=== PATIENT | female | born 1975 | race Caucasian/White ===

== ENCOUNTER 2020-04-08 18:57 | Emergency (ER) | payer BC ==
[~2020-04-08] VITALS: Ht 162.6 cm; Wt 98.0 kg
[2020-04-08 19:04] VITALS: BP 204/124
--- NOTE | 2020-04-08 19:16 | NUR ---
44 Y/O FEMALE PRESENTED TO ED C/O VOMITING X 1 DAY . PT STATES SHE ATE A BREAKFAST BURRIOT THIS MORNING AT 530 AND A FEW HOURS LATER SHE STARTED VOMITING. PT STATES SHE HAS VOMITTED 4 TIMES TODAY. PT C/O SALAZAR , 8/10 THROBBING PAIN. PT STATES SHE WAS FEELING SLEEPY THE LAST COUPLE OF DAYS AND SHE HAS BEEN FEELING CONSTANTLY THIRSTY. PT STATES SHE HAS BEEN DRINKING AT LEAST X8 32 BOTTLES OF WATER A DAY. PT DENIES DIARRHEA , BODY ACHES, CHILLS AND FEVER. PT STATES SHE WORKS AT [employer] AND HAVE BEEN AROUND PEOPLE WHO HAVE BEEN SICK BUT WAS TESTED FOR COVID ON 04/11 AND RESULTS WERE - ON 04/15. PT HAS HX OF HTN BUT DOES NOT TAKE MEDICATIONS. PT SITTING IN BED ,LOCKED AND IN LOWEST POSITION, HOB ELEVATED , SIDE RAIL X1. RR EVEN AND UNLABORED ,A/O X4. HX: HTN,HYPOTHYROID NKA RX: LEVOTHYROXIN
--- NOTE | 2020-04-08 19:43 | NUR ---
ERMD AT BEDSIDE FOR EVALUATION.
[2020-04-08] MEDS ORDERED: IBUPROFEN 600 MG TAB PO ONE (19:45)
[2020-04-08] MEDS ORDERED: ACETAMINOPHEN EXTRA STRENGTH 500 MG TAB PO ONE (19:45)
[2020-04-08] MEDS ORDERED: ONDANSETRON 4 MG/2 ML VIAL IVP ONE (19:45)
[2020-04-08] MEDS ORDERED: NACL 0.9% 1,000 ML IV ONE (19:45)
--- NOTE | 2020-04-08 20:10 | NUR ---
LAB AT BEDSIDE
[2020-04-08 20:28] LABS: BASOPHILS # (AUTO) 0.1 K/uL (0.00-0.22); BASOPHILS % (AUTO) 0.8 % (0.0-2.0); EOSINOPHILS # (AUTO) 0.3 K/uL (0-0.4); EOSINOPHILS % (AUTO) 3.3 % (0.0-4.0); HEMATOCRIT 33.3 % (36-48); HEMOGLOBIN 10.4 g/dL (12.0-16.0); LYMPHOCYTES % (AUTO) 20.3 % (20.5-51.1); MEAN CORPUSCULAR HEMOGLOBIN 23 pg (27-31); MEAN CORPUSCULAR HGB CONC 31 g/dL (33-37); MEAN CORPUSCULAR VOLUME 73.7 fL (80-94); MONOCYTES # (AUTO) 0.8 K/uL (0.8-1.0); MONOCYTES % (AUTO) 7.7 % (1.7-9.3); NEUTROPHILS # (AUTO) 6.8 K/uL (1.8-7.7); NEUTROPHILS % (AUTO) 67.9 % (42.2-75.2); PLATELET COUNT (AUTO) 312 K/uL (140-450); RED BLOOD CELL COUNT(AUTO) 4.51 MIL/uL (4.20-5.40)
[2020-04-08 20:38] LABS: ALBUMIN 3.7 g/dL (3.4-5.0); ANION GAP 15.6 (8-16); CARBON DIOXIDE 24.9 mmol/L (21-32); CREATININE 0.9 mg/dL (0.6-1.3); POTASSIUM 3.5 mmol/L (3.5-5.1); TOTAL BILIRUBIN 0.5 mg/dL (0.0-1.0)
--- NOTE | 2020-04-08 21:35 | NUR ---
PT BP 171/100 , DR. CAROLINA MADE AWARE.
[2020-04-08] MEDS ORDERED: lisinopriL 20 MG TAB PO ONE ×2 (22:20→22:25)
--- NOTE | 2020-04-08 22:23 | NUR ---
PER DR. CAROLINA D/C LISIONPRIL FOR 10 MG AND ADMINISTER LISIONPRIL PO 20MG.
[2020-04-08 22:32] VITALS: BP 174/100
--- NOTE | 2020-04-08 22:32 | NUR ---
Patient discharged with v/s stable. Written and verbal after care instructions given and explained. Patient alert, oriented and verbalized understanding of instructions. Ambulatory with steady gait. All questions addressed prior to discharge. ID band removed. Patient advised to follow up with PMD. Rx of BISOPROLOL given. Patient educated on indication of medication including possible reaction and side effects. Opportunity to ask questions provided and answered.
== END 2020-04-08 22:32 | disposition home or self-care (01) ==
LOC: MED 18:57
DX: B34.9 Viral infection, unspecified (principal); I10 Essential (primary) hypertension; E07.9 Disorder of thyroid, unspecified
CPT/HCPCS: 36415; 80053; 85025; 96361; 96374; 99284; J2405; J7030; 99283